=== PATIENT | male | born 1930 | race Two or more races ===

== ENCOUNTER 2017-06-01 11:33 | Emergency (ER) | payer OTHER ==
[~2017-06-01] VITALS: Ht 162.6 cm; Wt 62.6 kg
[~2017-06-01 11:33] MED LIST: PROTONIX40 MG PO
[2017-06-01] MEDS ORDERED: TOPROL XL25 M1 (12:38)
[2017-06-01] MEDS ORDERED: AMLODIPINE-OLM1 EAC1 (12:38)
[2017-06-01] MEDS ORDERED: ISORDIL TITRADOS5 MG (12:38)
[2017-06-01] MEDS ORDERED: LISINOPRIL1 GM (12:38)
[2017-06-01] MEDS ORDERED: NAMENDA1 EACH (12:39)
[2017-06-01] MEDS ORDERED: DIOVAN40 MG (12:39)
[2017-06-01] MEDS ORDERED: NITROSTAT0.3 MG (12:39)
[2017-06-01] MEDS ORDERED: ALLOPURINOL1 GM (12:39)
== END 2017-06-01 16:01 | disposition home or self-care (01) ==
LOC: ER 11:33
DX: I10 Essential (primary) hypertension (principal); N18.9 Chronic kidney disease, unspecified

== ENCOUNTER → 2018-01-02 | Emergency (ER) | payer OTHER ==
[~2018-01-02] VITALS: Ht 165.1 cm; Wt 62.6 kg
[~2018-01-02] MED LIST changes: +ALLOPURINOL1 GM; +AMLODIPINE-OLM1 EAC1; +DIOVAN40 MG; +ISORDIL TITRADOS5 MG; +LISINOPRIL1 GM; +NAMENDA1 EACH; +NITROSTAT0.3 MG; +TOPROL XL25 M1
== END | disposition home or self-care (01) ==
LOC: ER 11:31
DX: I16.0 Hypertensive urgency (principal); I10 Essential (primary) hypertension

== ENCOUNTER 2018-01-30 08:33 | Emergency (ER) | payer OTHER ==
[~2018-01-30] VITALS: Ht 162.6 cm; Wt 63.5 kg
== END 2018-01-30 12:08 | disposition home or self-care (01) ==
LOC: ER 08:33
DX: I16.0 Hypertensive urgency (principal); I10 Essential (primary) hypertension; D50.8 Other iron deficiency anemias